=== PATIENT | male | born 1955 | race Caucasian/White ===

== ENCOUNTER 2022-01-08 09:10 | Emergency (ER) | payer MEDICARE, OTHER ==
[~2022-01-08] VITALS: Ht 190.5 cm; Wt 81.8 kg
[2022-01-08 09:18] VITALS: TEMP 97.5
[2022-01-08] MEDS ORDERED: PRINIVIL10 MG PO (09:22)
[2022-01-08] MEDS ORDERED: SYNTHROID0.05 MG/TA PO (09:22)
[2022-01-08] MEDS ORDERED: HCTZ12.5TAB PO (09:23)
[2022-01-08 09:40] LABS: COLLECTION METHOD CLEAN CATCH
[2022-01-08 09:45] LABS: BASO # 0.1 K/mm3 (0.0-0.2); BASO % 0.8 % (0.0-2.0); EOS # 0.2 K/mm3 (0.0-0.7); EOS % 2.7 % (0.0-4.0); GRAN # 5.6 K/mm3 (1.4-6.5); GRAN % 66.3 % (42.2-75.2); HEMATOCRIT 46.9 % (42.0-52.0); HEMOGLOBIN 16.4 g/dl (13.5-18.0); LYMPH # 1.5 K/mm3 (1.2-3.4); LYMPH % 17.5 % (20.0-51.0); MEAN CELL VOLUME 86 fl (80.0-100.0); MEAN CORPUSCULAR HEMOGLOBIN 30 pg (27-31); MEAN CORPUSCULAR HGB CONC 35 g/dl (33.0-37.0); MEAN PLATELET VOLUME 10.1 fl (7.4-10.4); MONO % 12.3 % (1.7-9.3); PLATELET COUNT 255 K/mm3 (130-400); RED BLOOD COUNT 5.47 M/mm3 (4.20-5.60); REDCELL DISTRIBUTION WIDTH-CV 13.3 % (11.5-14.5)
[2022-01-08 09:49] LABS: MUCOUS Present (NOT PRESENT); PH 5 (5-8); SQUAMOUS EPITHELIAL None Seen /hpf (0-10); URINE APPEARANCE Clear (CLEAR/HAZY); URINE BACTERIA None Seen /hpf (NONE SEEN); URINE BLOOD Negative (NEGATIVE); URINE COLOR Yellow (YELLOW); URINE GLUCOSE Negative (NEGATIVE); URINE KETONE 1+ (NEGATIVE); URINE NITRATE Negative (NEGATIVE); URINE PROTEIN(semi-quant) Negative (NEGATIVE); URINE RBC 0-2 /hpf (0-2); URINE UROBILINOGEN Negative (NEGATIVE)
[2022-01-08 10:08] LABS: ALBUMIN 4.1 gm/dL (3.4-4.8); BILIRUBIN,TOTAL 4.4 mg/dL (0.2-1.2); CALCIUM 9.1 mg/dL (8.4-10.2); CREATININE, serum 1.42 mg/dL (0.72-1.25); POTASSIUM 3.3 mmol/L (3.5-4.5); TOTAL PROTEIN 7.3 gm/dL (6.2-8.1)
[2022-01-08 11:47] VITALS: BP 116/80; PULSE 69
== END 2022-01-08 11:50 | disposition home or self-care (01) ==
LOC: COL.ER 09:10
PROVIDERS: Emergency Medicine
DX: E80.6 Other disorders of bilirubin metabolism (principal); K62.5 Hemorrhage of anus and rectum; E87.6 Hypokalemia; R74.01 Elevation of levels of liver transaminase levels
CPT/HCPCS: J7030; Q9967